=== PATIENT | female | born 1980 | race Caucasian/White ===

== ENCOUNTER 2017-06-18 20:14 | Emergency (ER) | payer BC, OTHER ==
[2017-06-18 20:33] VITALS: BP 118/66
[2017-06-18] MEDS ORDERED: Prochlorperazine TAB* 5 MG PO ONE (20:55)
[2017-06-18] MEDS ORDERED: Ketorolac INJ* 30 MG/ML 1 ML VIAL IM ONE (20:55)
--- NOTE | 2017-06-18 21:00 | UC ---
Throat Pain/Nasal Gilberto HPI - HPI Summary HPI Summary: sore throat, loosing voice, head congestion and BARAHONA. - History of Current Complaint Chief Complaint: UCGeneralIllness Stated Complaint: FEVER,HEADACHE,SORE THROAT Time Seen by Provider: 06/18/17 20:32 Hx Obtained From: Patient Hx Last Menstrual Period: 06/12/17 ?: No Onset/Duration: Sudden Onset, Lasting Days Severity: Moderate Associated Signs & Symptoms: Positive: Dysphagia, Wheezing, Sinus Discomfort - Allergies/Home Medications Allergies/Adverse Reactions: Allergies Allergy/AdvReac Type Severity Reaction Status Date / Time Bee Venom Allergy Swelling Verified 06/18/17 20:33 Naproxen Allergy Anaphylatic Verified 06/18/17 20:33 Shock Paroxetine [From Paxil] Allergy Anaphylatic Verified 06/18/17 20:33 Shock Home Medications: Home Medications Ibuprofen TAB* [Advil TAB*] 400 mg PO Q6H PRN 06/18/17 [History Confirmed ] PMH/Surg Hx/FS Hx/Imm Hx Previously Healthy: Yes - Surgical History Surgical History: Yes Surgery Procedure, Year, and Place: TUBAL LIGATION, OVARIAN CYSTECTOMY - Family History Known Family History: Positive: Hypertension - Social History Alcohol Use: Rare Substance Use Type: None Smoking Status (MU): Former Smoker Type: Cigarettes, eCigarettes Amount Used/How Often: eCigarette "five drags a day"; 1/2 PPD quit 08/23/13 Length of Time of Smoking/Using Tobacco: 18 Years Have You Smoked in the Last Year: Yes When Did the Patient Quit Smoking/Using Tobacco: 2012 Review of Systems Constitutional: Negative Skin: Negative Eyes: Negative ENT: Sore Throat Respiratory: Cough Cardiovascular: Negative Gastrointestinal: Negative Genitourinary: Negative Motor: Negative Neurovascular: Negative Musculoskeletal: Negative Neurological: Headache Psychological: Negative Is Patient Immunocompromised?: No All Other Systems Reviewed And Are Negative: Yes Physical Exam Triage Information Reviewed: Yes Appearance: Well-Nourished, Ill-Appearing, Pain Distress Vital Signs: Initial Vital Signs Temp 98.4 F 06/18/17 20:26 Pulse 91 06/18/17 20:26 Resp 18 06/18/17 20:26 BP 118/66 06/18/17 20:26 Pulse Ox 99 06/18/17 20:26 Vital Signs Reviewed: Yes Eye Exam: Normal ENT: Positive: Pharyngeal erythema, TM bulging, TM dull Dental Exam: Normal Neck exam: Normal Neck: Positive: Supple, Nontender, No Lymphadenopathy Respiratory Exam: Normal Respiratory: Positive: Chest non-tender, Lungs clear, Normal breath sounds Cardiovascular Exam: Normal Cardiovascular: Positive: RRR, No Murmur, Pulses Normal Abdominal Exam: Normal Abdomen Description: Positive: Nontender, No Organomegaly, Soft Bowel Sounds: Positive: Present Musculoskeletal Exam: Normal Musculoskeletal: Positive: Strength Intact, ROM Intact, No Edema Neurological Exam: Normal Neurological: Positive: Alert, Muscle Tone Normal, Other: - PERRLA, EOMI, Cranial nerves intact Psychological Exam: Normal Skin Exam: Normal Throat Pain/Nasal Course/Dx - Course Course Of Treatment: hx obtained, exam performed ,meds reviewed, given toradol and compazine for BARAHONA, and prednisone to start tomorrow for serous otitis - Differential Dx/Diagnosis Differential Diagnosis/HQI/PQRI: Laryngitis, Otitis Media, Pharyngitis, Sinusitis Provider Diagnoses: left serous otitis. BARAHONA. laryngitis Discharge - Discharge Plan Condition: Stable Disposition: HOME Prescriptions: predniSONE TAB* [Deltasone TAB*] 40 mg PO DAILY #14 tab Patient Education Materials: Serous Otitis Media (ED), General Headache (ED) Additional Instructions: 1. rest, get plenty of fluid 2. start the prednisone in the AM 3. follow up with any worsening symptoms
== END 2017-06-18 21:25 | disposition home or self-care (01) ==
LOC: UCCORT 20:14
DX: H65.92 Unspecified nonsuppurative otitis media, left ear (principal); R51 Headache; J04.0 Acute laryngitis; Z88.1 Allergy status to other antibiotic agents; Z88.8 Allergy status to other drugs, medicaments and biological substances; Z87.891 Personal history of nicotine dependence
CPT/HCPCS: 87651; 96372; 99212; A9270-GY; G0463; J1885

== ENCOUNTER 2017-11-05 12:39 | Emergency (ER) | payer OTHER ==
[2017-11-05 14:01] VITALS: BP 107/69
--- NOTE | 2017-11-05 14:16 | UC ---
Throat Pain/Nasal Gilberto HPI - HPI Summary HPI Summary: Patient is c/o of sore throat, PND, denies any other symtpoms - History of Current Complaint Chief Complaint: UCRespiratory Stated Complaint: SORE THROAT Time Seen by Provider: 11/05/17 13:54 Hx Obtained From: Patient Hx Last Menstrual Period: 10/23/17 ?: No Onset/Duration: Sudden Onset, Lasting Days Severity: Moderate Pain Intensity: 5 Associated Signs & Symptoms: Positive: Dysphagia, Hoarseness, Nasal Discharge - Allergies/Home Medications Allergies/Adverse Reactions: Allergies Allergy/AdvReac Type Severity Reaction Status Date / Time bee venom protein (honey bee) Allergy Swelling Verified 11/05/17 13:56 naproxen Allergy Anaphylatic Verified 11/05/17 13:56 Shock paroxetine [From Paxil] Allergy Anaphylatic Verified 11/05/17 13:56 Shock Penicillins Allergy Vomiting Verified 11/05/17 13:56 PMH/Surg Hx/FS Hx/Imm Hx Previously Healthy: Yes - Surgical History Surgical History: Yes Surgery Procedure, Year, and Place: TUBAL LIGATION, OVARIAN CYSTECTOMY - Family History Known Family History: Positive: Hypertension - Social History Alcohol Use: Occasionally Substance Use Type: None Smoking Status (MU): Former Smoker Type: Cigarettes, eCigarettes Amount Used/How Often: eCigarette "five drags a day"; 1/2 PPD quit 08/23/13 Length of Time of Smoking/Using Tobacco: 18 Years Have You Smoked in the Last Year: Yes When Did the Patient Quit Smoking/Using Tobacco: 2012 Review of Systems Constitutional: Negative Skin: Negative Eyes: Negative ENT: Sore Throat, Ear Ache, Nasal Discharge Respiratory: Cough Cardiovascular: Negative Gastrointestinal: Negative Genitourinary: Negative Motor: Negative Neurovascular: Negative Musculoskeletal: Negative Neurological: Negative Psychological: Negative Is Patient Immunocompromised?: No All Other Systems Reviewed And Are Negative: Yes Physical Exam Triage Information Reviewed: Yes Appearance: Well-Nourished, Ill-Appearing, Pain Distress Vital Signs: Initial Vital Signs Temp 98.9 F 11/05/17 13:56 Pulse 68 11/05/17 13:56 Resp 18 11/05/17 13:56 BP 107/69 11/05/17 13:56 Pulse Ox 99 11/05/17 13:56 Eye Exam: Normal ENT: Positive: Pharyngeal erythema - with PND, TM bulging Dental Exam: Normal Neck exam: Normal Neck: Positive: Supple, Nontender, No Lymphadenopathy Respiratory Exam: Normal Respiratory: Positive: Chest non-tender, No respiratory distress, No accessory muscle use, Wheezing, Inspiration Cardiovascular Exam: Normal Cardiovascular: Positive: RRR, No Murmur, Pulses Normal Abdominal Exam: Normal Abdomen Description: Positive: Nontender, No Organomegaly, Soft Bowel Sounds: Positive: Present Musculoskeletal Exam: Normal Neurological Exam: Normal Psychological Exam: Normal Skin Exam: Normal Throat Pain/Nasal Course/Dx - Course Course Of Treatment: hx obtained, exam performed ,meds reviewed, rapid strep obtained and was negative - Differential Dx/Diagnosis Differential Diagnosis/HQI/PQRI: Influenza, Laryngitis, Otitis Media, Pharyngitis, Sinusitis, Tonsillitis Provider Diagnoses: wheezing. pharyngitis Discharge - Sign-Out/Discharge Documenting (check all that apply): Discharge - Discharge Plan Condition: Stable Disposition: HOME Prescriptions: predniSONE TAB* [Deltasone TAB*] 40 mg PO DAILY #14 tab Patient Education Materials: Pharyngitis (ED) Referrals: Sue Goel PA [Primary Care Provider] - Additional Instructions: 1. take the medication as prescribed. 2. Increase fluid intake and get plenty of rest. 3. Follow up as needed. - Billing Disposition and Condition Condition: STABLE Disposition: HOME
== END 2017-11-05 14:38 | disposition home or self-care (01) ==
LOC: UCCORT 12:39
DX: J02.9 Acute pharyngitis, unspecified (principal); R06.2 Wheezing; Z88.3 Allergy status to other anti-infective agents; Z88.0 Allergy status to penicillin; Z87.891 Personal history of nicotine dependence
CPT/HCPCS: 87651; 99212; G0463

== ENCOUNTER 2018-03-27 15:45 | Emergency (ER) | payer SELFPAY ==
[2018-03-27 15:58] VITALS: BP 130/75
--- NOTE | 2018-03-27 16:03 | UC ---
Cardiac HPI - HPI Summary HPI Summary: 37 YO FEMALE comes to clinic today complaining of chest pain and shortness of breath. The patient woke with the symptoms this morning. The pain as a tightness in the middle of the chest. Its moderate. It is worse with trying to take a deep breath. She reports a fever this morning. She felt fine yesterday no URI symptoms. No calf pain or edema. No history of DVT. She is not a smoker she's not on control pills. No sputum production. There was no trauma. - History of Current Complaint Chief Complaint: UCChestPain Stated Complaint: SHORTNESS OF BREATH/FEVER/HEADACHE Time Seen by Provider: 03/27/18 15:54 Hx Last Menstrual Period: end of February 2018/has had tubal Pain Intensity: 8 - Allergy/Home Medications Allergies/Adverse Reactions: Allergies Allergy/AdvReac Type Severity Reaction Status Date / Time bee venom protein (honey bee) Allergy Swelling Verified 03/27/18 15:58 naproxen Allergy Anaphylatic Verified 03/27/18 15:58 Shock paroxetine [From Paxil] Allergy Anaphylatic Verified 03/27/18 15:58 Shock Penicillins Allergy Vomiting Verified 03/27/18 15:58 PMH/Surg Hx/FS Hx/Imm Hx Previously Healthy: Yes - Surgical History Surgical History: Yes Surgery Procedure, Year, and Place: TUBAL LIGATION, OVARIAN CYSTECTOMY - Family History Known Family History: Positive: Hypertension Negative: Diabetes - Social History Alcohol Use: Occasionally Substance Use Type: None Smoking Status (MU): Former Smoker Type: Cigarettes, eCigarettes Amount Used/How Often: eCigarette "five drags a day"; 1/2 PPD quit 08/23/13 Length of Time of Smoking/Using Tobacco: 18 Years Have You Smoked in the Last Year: Yes When Did the Patient Quit Smoking/Using Tobacco: 2012 Review of Systems Constitutional: Fever Skin: Negative Eyes: Negative ENT: Negative Respiratory: Shortness Of Breath Cardiovascular: Chest Pain Gastrointestinal: Negative Genitourinary: Negative Motor: Negative Neurovascular: Negative Musculoskeletal: Negative Neurological: Negative Psychological: Anxious Is Patient Immunocompromised?: No All Other Systems Reviewed And Are Negative: Yes Physical Exam Triage Information Reviewed: Yes Appearance: Pain Distress - Mild pain distress mild shortness of breath Vital Signs: Initial Vital Signs Temp 98.5 F 09/11/18 15:54 Pulse 113 03/27/18 15:54 Resp 23 03/27/18 15:54 BP 130/75 03/27/18 15:54 Pulse Ox 97 03/27/18 15:54 Vital Signs Reviewed: Yes ENT Exam: Normal Neck exam: Normal Neck: Positive: Supple Respiratory: Positive: Lungs clear, Respiratory distress Cardiovascular: Positive: Tachycardia Abdomen Description: Positive: Nontender Musculoskeletal Exam: Normal Musculoskeletal: Positive: Strength Intact, ROM Intact Neurological: Positive: Alert Psychological Exam: Normal Skin Exam: Normal Diagnostics - EKG Cardiac Rate: Tachycardia - 113BPM Cardiac Rhythm: Sinus: Normal Ectopy: None ST Segment: Normal - Assessment/Plan Course Of Treatment: I recommended going directly to the emergency department. The patient declined an ambulance. I spoke with the [facility] emergency department and faxed the EKG to them. - Clinical Impression Provider Diagnoses: Chest pain. Shortness of breath Discharge - Sign-Out/Discharge Documenting (check all that apply): Patient Departure All imaging exams completed and their final reports reviewed: No Studies - Discharge Plan Condition: Fair Disposition: HOME-RECOMMEND TO ED Patient Education Materials: Chest Pain (ED) Referrals: Sue Goel PA [Primary Care Provider] - Additional Instructions: GO DIRECTLY TO THE EMERGENCY DEPARTMENT FOR FURTHER EVALUATION. - Billing Disposition and Condition Condition: FAIR Disposition: Home-Recommend to ED - Attestation Statements Document Initiated by Fernando: Melissa
== END 2018-03-27 16:12 | disposition home health service (06) ==
LOC: UCCORT 15:45
DX: R07.9 Chest pain, unspecified (principal); R06.02 Shortness of breath; R00.0 Tachycardia, unspecified; F17.290 Nicotine dependence, other tobacco product, uncomplicated; Z88.8 Allergy status to other drugs, medicaments and biological substances; Z88.0 Allergy status to penicillin
CPT/HCPCS: 93005; 99212; G0463

== ENCOUNTER 2018-08-27 13:49 | Emergency (ER) | payer OTHER ==
[2018-08-27 15:08] VITALS: BP 117/77
--- NOTE | 2018-08-27 15:21 | UC ---
Back Pain HPI - HPI Summary HPI Summary: 37 yo female presents with left upper back pain. She tells me that on 08/24 she was at work as a [employer] and was changing a soiled bed when she felt a pull in her left scapula region. She has been resting, applying heat, and taking ibuprofen with little relief. The pain is worse with movement. She has no hx of left shoulder/back problems. Denies numbness or tingling. - History of Current Complaint Chief Complaint: UCBackPain Stated Complaint: WC-BACK INJURY Time Seen by Provider: 08/27/18 15:21 Hx Obtained From: Patient Hx Last Menstrual Period: 08/20/18 Onset/Duration: Sudden Onset Timing: Constant Severity Initially: Moderate Severity Currently: Moderate Pain Intensity: 7 Pain Scale Used: 0-10 Numeric - Allergies/Home Medications Allergies/Adverse Reactions: Allergies Allergy/AdvReac Type Severity Reaction Status Date / Time bee venom protein (honey bee) Allergy Swelling Verified 08/27/18 15:09 naproxen Allergy Anaphylatic Verified 08/27/18 15:09 Shock paroxetine [From Paxil] Allergy Anaphylatic Verified 08/27/18 15:09 Shock Penicillins Allergy Vomiting Verified 08/27/18 15:09 PMH/Surg Hx/FS Hx/Imm Hx - Additional Past Medical History Additional PMH: None - Surgical History Surgical History: Yes Surgery Procedure, Year, and Place: TUBAL LIGATION, OVARIAN CYSTECTOMY - Family History Known Family History: Positive: Hypertension Negative: Diabetes - Social History Occupation: Employed Full-time Lives: With Family Alcohol Use: Occasionally Substance Use Type: None Smoking Status (MU): Former Smoker Type: Cigarettes, eCigarettes Amount Used/How Often: eCigarette "five drags a day"; / PPD quit 08/23/13 Length of Time of Smoking/Using Tobacco: 18 Years Have You Smoked in the Last Year: Yes When Did the Patient Quit Smoking/Using Tobacco: 2012 Review of Systems All Other Systems Reviewed And Are Negative: Yes Constitutional: Positive: Negative Skin: Positive: Negative Respiratory: Positive: Negative Cardiovascular: Positive: Negative Neurovascular: Positive: Negative Musculoskeletal: Positive: Other: - Left upper back pain Neurological: Positive: Negative Psychological: Positive: Negative Physical Exam - Summary Physical Exam Summary: GENERAL: NAD. WDWN. No pain distress. SKIN: No rashes, sores, lesions, or open wounds. CHEST: No accessory muscle use. Breathing comfortably and in no distress. CV: Pulses intact radial and ulnar. Cap refill <2seconds MSK: LEFT upper back: TTP along trapezius and scapula musculature. Pain with flexion and abduction of left shoulder. Strength 5/5 including senior engineer strength. No edema or obvious bony deformities. Negative empty can, maldonado-marv, neer , barron, and yergason tests. NEURO: Alert. Sensations intact hand and all fingers. PSYCH: Age appropriate behavior. Triage Information Reviewed: Yes Vital Signs: Initial Vital Signs Temp 98.5 F 08/27/18 15:06 Pulse 71 08/27/18 15:06 Resp 16 08/27/18 15:06 BP 117/77 08/27/18 15:06 Pulse Ox 100 08/27/18 15:06 Vital Signs Reviewed: Yes Back Pain Course/Dx - Course Course Of Treatment: Suspect muscle strain/spasm. Pt was offerred toradol IM in the clinic, but declined due to fear of needles/injections. Advised to continue to take ibuprofen and apply heat. Will rx for flexeril and have her f/u with [facility] regarding her work related injury. - Differential Dx/Diagnosis Provider Diagnosis: Muscle spasm Discharge - Sign-Out/Discharge Documenting (check all that apply): Patient Departure All imaging exams completed and their final reports reviewed: No Studies - Discharge Plan Condition: Stable Disposition: HOME Prescriptions: Cyclobenzaprine TAB* [Flexeril 10 MG TAB*] 10 mg PO TID PRN #21 tab PRN Reason: Pain Patient Education Materials: Muscle Spasm (ED) Forms: *Work Release Referrals: No Primary Care Phys,NOPCP [Primary Care Provider] - Additional Instructions: If you develop a fever, shortness of breath, chest pain, new or worsening symptoms - please call your PCP or go to the ED. 1) Rest and apply heat to your area of pain 2) May continue the ibuprofen starting tomorrow 3) Please call Dr. Laureano at the number below to schedule an appointment regarding your work related injury. - Billing Disposition and Condition Condition: STABLE Disposition: Home
[2018-08-27] MEDS ORDERED: Ketorolac INJ* 60 MG/2 ML VIAL IM ONE (15:32)
== END 2018-08-27 15:46 | disposition home or self-care (01) ==
LOC: UCCORT 13:49
DX: M62.830 Muscle spasm of back (principal); Z91.030 Bee allergy status; Z88.8 Allergy status to other drugs, medicaments and biological substances; Z87.891 Personal history of nicotine dependence
CPT/HCPCS: 99212; G0463; J1885